=== PATIENT | female | born 1960 | race Caucasian/White ===

== ENCOUNTER 2016-10-31 08:43 | Inpatient (IN) | payer OTHER ==
[~2016-10-31] VITALS: Ht 167.6 cm; Wt 134.0 kg
[2016-10-31 09:46] LABS: BASOPHIL % 0.3 % (0-2); PLATELET COUNT 180 x10^3mcL (130-400); RED CELL DISTRIBUTION WIDTH 13.8 % (11.5-14.5)
[2016-10-31 09:51] LABS: CHLORIDE SERUM 102 mmol/L (98-107); GFR1 > 60 mL/min; GLUCOSE SERUM 281 mg/dL (74-106); POTASSIUM SERUM 3.7 mmol/L (3.5-5.1); SODIUM SERUM 136 mmol/L (136-145)
[2016-10-31 13:20] LABS: FREE T4 1.55 ng/dL (0.76-1.46); FREE THYROXINE INDEX 4.2 ug/dL (1.4-4.5); T4(THYROXINE) 11.8 ug/dL (4.7-13.3)
[2016-10-31 13:24] VITALS: BP 126/78
[2016-10-31 13:25] LABS: T3 TOTAL 1.12 ng/mL
[2016-10-31 13:30] LABS: ALBUMIN 3.4 g/dL (3.4-5.0); BILIRUBIN DIRECT 0.33 mg/dL (0.0-0.2); BILIRUBIN TOTAL 1.7 mg/dL (0.20-1.00); CHOLESTEROL/HDL RATIO 2.4; MAGNESIUM 1.5 mg/dL (1.8-2.4); PHOSPHOROUS 3.5 mg/dL (2.5-4.9); TOTAL PROTEIN, SERUM 7.3 g/dL (6.4-8.2)
[2016-10-31 15:25] LABS: AMPHETAMINE QUAL UR NONE DETECTED (NEG <=1000)
[2016-10-31 15:31] LABS: microscopic required? YES; urine erythrocyte 1+ (NEGATIVE)
[2016-10-31 16:47] VITALS: BP 113/62
[2016-10-31 21:12] VITALS: BP 118/72
[2016-11-01 05:25] VITALS: BP 119/67
[2016-11-01 06:02] LABS: BASOPHIL % 0.5 % (0-2); PLATELET COUNT 152 x10^3mcL (130-400); RED CELL DISTRIBUTION WIDTH 13.8 % (11.5-14.5)
[2016-11-01 06:38] LABS: CALCIUM 8.7 mg/dL (8.5-10.1); CARBON DIOXIDE 26.6 mmol/L (21-32); CHLORIDE SERUM 104 mmol/L (98-107); CREATININE SERUM 0.8 mg/dL (0.6-1.0); GFR1 > 60 mL/min; GLUCOSE SERUM 157 mg/dL (74-106); MAGNESIUM 1.9 mg/dL (1.8-2.4); PHOSPHOROUS 4.4 mg/dL (2.5-4.9); SODIUM SERUM 140 mmol/L (136-145)
[2016-11-01 10:00] VITALS: BP 121/73
[2016-11-01 12:02] VITALS: Ht 167.6 cm; Wt 134.0 kg
[2016-11-01 14:10] VITALS: BP 113/72
[2016-11-01 18:49] VITALS: BP 113/61
[2016-11-01 21:08] VITALS: BP 118/71
[2016-11-02 05:38] VITALS: BP 111/52
[2016-11-02 07:32] LABS: BASOPHIL % 0.4 % (0-2); PLATELET COUNT 179 x10^3mcL (130-400); RED CELL DISTRIBUTION WIDTH 13.4 % (11.5-14.5)
[2016-11-02 08:25] LABS: CALCIUM 8.5 mg/dL (8.5-10.1); CARBON DIOXIDE 24.4 mmol/L (21-32); CHLORIDE SERUM 103 mmol/L (98-107); CREATININE SERUM 0.8 mg/dL (0.6-1.0); GFR1 > 60 mL/min; GLUCOSE SERUM 168 mg/dL (74-106); MAGNESIUM 1.6 mg/dL (1.8-2.4); PHOSPHOROUS 3.9 mg/dL (2.5-4.9); POTASSIUM SERUM 3.6 mmol/L (3.5-5.1); SODIUM SERUM 137 mmol/L (136-145)
[2016-11-02 10:00] VITALS: BP 125/85
[2016-11-02] MEDS ORDERED: TOP50 PO ×2 (10:50→14:14)
[2016-11-02] MEDS ORDERED: LIPI20 PO ×2 (10:51→14:14)
[2016-11-02] MEDS ORDERED: LOT10 PO ×2 (10:51→14:14)
[2016-11-02] MEDS ORDERED: GLU500 PO ×2 (10:52→14:14)
[2016-11-02] MEDS ORDERED: HYDROCHLOROTH12.5 M3 PO ×2 (10:52→14:14)
[2016-11-02] MEDS ORDERED: COUMADIN2 MG PO ×2 (10:54→14:14)
[2016-11-02] MEDS ORDERED: LAC PO ×2 (10:55→14:14)
[2016-11-02] MEDS ORDERED: CLEOCIN HCL300 MG PO ×2 (10:55→14:14)
[2016-11-02 13:34] VITALS: BP 125/85
== END 2016-11-02 15:15 | disposition home or self-care (01) | DRG 603 ==
LOC: ED 08:43 → MU 10:47 → DU 10:47 → MU 11-01 11:30
PROVIDERS: Emergency Medicine; Family Medicine; ADMIT Family Medicine
PROC: 0Y980ZZ Drainage of Left Femoral Region, Open Approach (ICD-10-PCS; principal; 2016-11-01)
DX: L02.416 Cutaneous abscess of left lower limb (principal); Z68.42 Body mass index [BMI] 45.0-49.9, adult; D68.69 Other thrombophilia; L03.116 Cellulitis of left lower limb; T45.515A Adverse effect of anticoagulants, initial encounter; I67.2 Cerebral atherosclerosis; I10 Essential (primary) hypertension; E11.65 Type 2 diabetes mellitus with hyperglycemia; E11.59 Type 2 diabetes mellitus with other circulatory complications; E78.1 Pure hyperglyceridemia; K76.0 Fatty (change of) liver, not elsewhere classified; E66.01 Morbid (severe) obesity due to excess calories; Z86.73 Personal history of transient ischemic attack (TIA), and cerebral infarction without residual deficits; Z79.01 Long term (current) use of anticoagulants; Y92.018 Other place in single-family (private) house as the place of occurrence of the external cause
CPT/HCPCS: 82962; 83880; 84439; G0480; J2001; J3475; J3490; J7030; Q0092